=== PATIENT | male | born 2005 | race Caucasian/White ===

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

== ENCOUNTER 2023-02-11 11:21 | Emergency (ER) | payer MEDICAID, SELFPAY ==
[2023-02-11 11:27] VITALS: BP 122/76; PULSE 67; RESP 17; TEMP 36.7; O2SAT 100; BMI 27.8
[2023-02-11 12:21] LABS: Basophils # 0.1 10^3/uL (0.0-0.1); Basophils % 0.6 %; Eosinophils # 0.3 10^3/uL (0.0-0.8); Hematocrit 43.1 % (37-53); Lymphocytes # 2.8 10^3/uL (1.5-6.5); Lymphocytes % 34.3 %; Mean Corpuscular HGB Conc 33.2 g/dL (30-55); Mean Corpuscular Hemoglobin 27.4 pg (27-33); Mean Corpuscular Volume 82.7 fl (82-101); Mean Platelet Volume 9.6 fL (7.4-10.4); Monocytes # 0.7 10^3/uL (0.2-0.9); Monocytes % 8.2 %; Neutrophils # 4.42 10^3/uL (1.8-8.0); Neutrophils % 53.5 %; Nucleated Red Blood Cells % 0 %; Platelet Count 309 10^3/cmm (157-399); Red Blood Count 5.21 10^6/uL (3.85-5.65); Red Cell Distribution Width 12.8 % (12.1-15.1); White Blood Count 8.26 10^3/uL (4.5-13.0)
--- NOTE | 2023-02-11 12:29 | ED_ITS ---
HPI - GI Bleed General: Chief complaint: GI Bleed Stated complaint: pooping blood Time Seen by Provider: 02/11/23 12:12 Source: patient Mode of arrival: ambulatory Limitations: no limitations History of Present Illness: This patient presents to the emergency department because he was concerned about having some blood in his stool. He states he got up in her normal state of health and had some lower abdominal cramping and had a hard bowel movement and noted a little bit of blood on the bowel movement. He states that within an hour or so later he had some increasing lower abdominal cramping and had loose stools with bright red blood mixed with the stool. He has not any subsequent stools since that time. He denies any recent antibiotic use, recent travel etc. He states he has had previous similar episode several months ago that was evaluated and he was referred to gastroenterology but because of insurance changes he did not keep that appointment. Apparently there is a strong family history of Crohn's disease with several first-degree relatives and second-degree relatives in his mother's side of the family. He has never had any abdominal surgeries. He has had some history of lactose intolerance with cheeses and ice cream. He denies any fevers or chills. He does not take any nonsteroidals aspirin etc. He denies any rectal trauma etc. He is not lightheaded dizzy etc. He has never had lower endoscopy and has had an otherwise unremarkable past medical history. He did have some heartburn or acid reflux symptoms approximately year ago that he took a medicine for it and those have resolved and have not ever come back. He does smoke tobacco does not use alcohol or street drugs. MD complaint: gross hematochezia Associated symptoms: Denies chills, easy bruising, epistaxis, fever(s), headache(s), nausea, syncope or vomiting Review of Systems Const: Denies: fever(s) or chills ENMT: Denies: throat pain, nasal discharge, nasal congestion or epistaxis Card: Denies: chest pain, palpitations, syncope or pre-syncope Resp: Denies: dyspnea, productive cough or non-productive cough GI: Reports: hematochezia; Denies: nausea, vomiting, hematemesis, heartburn or constipation : Denies: flank pain, difficulty urinating, dysuria or urinary frequency Neuro: Denies: headache(s), numbness in extremities or weakness in extremities Ayo/Lymph: Denies: easy bruising, easy bleeding or petechiae PFS ED PFSH: Medical History (Updated 02/11/23 @ 13:38 by Elias Myers DO) Psychiatric care Social History Smoking and tobacco/nicotine status: never used tobacco/nicotine Second hand smoke exposure: Yes Alcohol intake: former Substance/Drug Use: current Other substance/drug use details: Delta 8 Physical Exam Narrative: EXAM NARRATIVE: He is alert no acute distress makes good eye contact and appears to be very comfortable. Const: COMMON NORMALS: no acute distress, average body habitus and patient oriented x3 GENERAL APPEARANCE: cooperative, comfortable and well kempt HENMT: COMMON NORMALS: normocephalic, Normal nasal mucous membranes and turbinates present, moist oral mucous membranes and oropharynx normal HEAD & SCALP: normocephalic NOSE: Normal nasal mucous membranes and turbinates present Eye: COMMON NORMALS: Equal, round and reactive pupils present, EOMs intact bilaterally and no scleral icterus PUPIL: Yes Equal, round and reactive pupils present Neck/C-Spine: COMMON NORMALS: full ROM, no lymphadenopathy and no JVD Chest: COMMONS NORMALS: normal inspection of the chest Resp: COMMON NORMALS: normal respiratory effort, No retractions, No use of accessory muscles and clear to auscultation bilaterally AUSCULTATION: clear to auscultation bilaterally Cardio: COMMON NORMALS: no JVD, regular rate, regular rhythm, No murmurs present (Cardio) and Peripheral pulses 2+ throughout RATE: regular rate RHYTHM: regular rhythm PERIPHERAL PULSES: Peripheral pulses 2+ throughout GI: COMMON NORMALS: Normal to inspection, nondistended, normoactive bowel sounds present, Soft to palpation and non-tender PALPATION: Yes Soft to palpation RECTAL EXAM: Yes visual inspection normal, Yes normal sphincter tone, No hemorrhoids, No Anal fissure(s) present and No tenderness : COMMON NORMALS: Yes no CVA tenderness BLADDER/KIDNEY EXAM: Yes no CVA tenderness Back/Pelvis: COMMON NORMALS: no CVA tenderness, thoracic and lumbar spine normal to inspection and no thoracic nor lumbar tenderness Extremity: COMMON NORMALS: normal to inspection, full ROM, no calf tenderness and no pedal edema Neuro: COMMON NORMALS: patient oriented x3, moves all extremities, no focal motor deficits and no sensory deficits noted Psych: COMMON NORMALS: mental status grossly normal APPEARANCE: Yes well kempt Skin: COMMON NORMALS: no rashes or lesions noted, no wounds and turgor normal GENERAL SKIN EXAM: no rashes or lesions noted and turgor normal Course Reevaluation(s): Reevaluation #1: Patient is remained comfortable. Vital signs are reassuring. Abdominal e xamination remains nontender without any evidence of peritoneal signs or other concerning findings at this time. Reviewed current findings there limitations etc. Also reviewed need for GI follow-up for endoscopy and further evaluation. At this time there is no evidence of an ongoing emergency medical condition but we also discussed return precautions in detail. Time: 13:35 Vital Signs: Vital signs: Vital Signs Temperature 98.1 F 02/11/23 11:27 Pulse Rate 67 02/11/23 11:27 Respiratory Rate 17 02/11/23 11:27 Blood Pressure 122/76 02/11/23 11:27 Pulse Oximetry 100 02/11/23 11:27 Oxygen Delivery Me thod Room Air 02/11/23 11:27 MDM - GI Bleed Medical Decision Making This patient presented to our emergency department because of concerns about having bright red blood per rectum. He has had 2 episodes today. No evidence to suggest recent antibiotic use, rectal trauma, blood dyscrasias etc. His clinical examination was very reassuring with normal vital signs a nontender reassuring abdominal examination and no evidence of obvious fissures or hemorrhoids etc. at this time. Patient does have a strong family history of Crohn's disease however his blood count platelet count chemistries etc. are reassuring at this time. We reviewed limited efficacy of additional imaging at this time but that GI follow-up is going to be important to establish whether he has any colonic pathology as well. There is also some history to suggest lactose intolerance and while that may or may not contribute to his current presentation we discussed lactose avoidance. Patient is currently clinically stable and suitable for outpatient evaluation and we discussed return precautions in detail which she acknowledged. We also recommended avoiding nonsteroidals antiplatelet agent such as aspirin etc. at this time. Medical Records I reviewed the patient's medical records. Prior MRI and ultrasound noted no significant pathology. Lab Data I reviewed the patient's lab results. 02/11/23 12:05 02/11/23 12:05 Laboratory Results WBC 8.26 10^3/uL (4.5-13.0) 02/11/23 12:05 RBC 5.21 10^6/uL (3.85-5.65) 02/11/23 12:05 Hgb 14.30 g/dL (13.2-15.6) 02/11/23 12:05 Hct 43.1 % (37-53) 02/11/23 12:05 MCV 82.7 fl (82-101) 02/11/23 12:05 MCH 27.4 pg (27-33) 02/11/23 12:05 MCHC 33.2 g/dL (30-55) 02/11/23 12:05 RDW 12.8 % (12.1-15.1) 02/11/23 12:05 Plt Count 309 10^3/cmm (157-399) 02/11/23 12:05 MPV 9.6 fL (7.4-10.4) 02/11/23 12:05 Neut % (Auto) 53.5 % 02/11/23 12:05 Lymph % (Auto) 34.3 % 02/11/23 12:05 H[place]go % (Auto) 8.2 % 02/11/23 12:05 Eos % (Auto) 3.0 % 02/11/23 12:05 Baso % (Auto) 0.6 % 02/11/23 12:05 Neut # (Auto) 4.42 10^3/uL (1.8-8.0) 02/11/23 12:05 Lymph # (Auto) 2.8 10^3/uL (1.5-6.5) 02/11/23 12:05 [place]go # (Auto) 0.7 10^3/uL (0.2-0.9) 02/11/23 12:05 Eos # (Auto) 0.3 10^3/uL (0.0-0.8) 02/11/23 12:05 Baso # (Auto) 0.1 10^3/uL (0.0-0.1) 02/11/23 12:05 Nucleated RBC % (auto) 0 % 02/11/23 12:05 Nucleated RBCs # 0.0 /100WBC 02/11/23 12:05 Sodium 137 mmol/L (136-145) 02/11/23 12:05 Potassium 3.4 mmol/L (3.5-5.1) L 02/11/23 12:05 Chloride 102 mmol/L (98-107) 02/11/23 12:05 Carbon Dioxide 26 mmol/L (22-29) 02/11/23 12:05 Anion Gap 12.4 (5-19) 02/11/23 12:05 BUN 9 mg/dL (6-20) 02/11/23 12:05 Creatinine 0.7 mg/dL (0.7-1.2) 02/11/23 12:05 GFR Calculation 145.3 mL/min (90-130) H 02/11/23 12:05 Glucose 79 mg/dL (65-115) 02/11/23 12:05 Calculated Osmolality 282 mOsm/kg (285-295) L 02/11/23 12:05 Calcium 9.4 mg/dL (8.5-10.5) 02/11/23 12:05 Total Bilirubin 0.4 mg/dL (0.15-1.2) 02/11/23 12:05 AST 25 U/L (0-40) 02/11/23 12:05 ALT 28 U/L (0-41) 02/11/23 12:05 Alkaline Phosphatase 93 U/L (40-130) 02/11/23 12:05 Total Protein 7.2 g/dL (6.6-8.7) 02/11/23 12:05 Albumin 4.7 g/dL (3.5-5.2) 02/11/23 12:05 Globulin 2.5 g/dL (1.3-4.6) 02/11/23 12:05 No radiology studies performed this visit Discharge Plan Discharge Patient Disposition: Home Clinical Impression: Hematochezia Condition: Stable Prescriptions: No Action cetirizine 10 mg tablet 10 mg PO DAILY PRN albuterol sulfate [Ventolin HFA] 90 mcg/actuation HFA aerosol inhaler 1 puff inhalation .HS fluoxetine 40 mg capsule 40 mg PO DAILY Qty: 30 1RF trazodone 50 mg tablet 100 mg PO .HS PRN (Reason: insomnia) Qty: 60 1RF bacitracin 500 unit/gram ointment 1 applic topical BID Qty: 28 0RF Rx Instructions: To wound until healed Discharge Orders: Discharge ED (Routine); Ordered 02/11/23 Ordered By: Elias Myers Referrals: Cindy Caceres, [Primary Care Provider] - Discharge Diet: Usual diet Discharge Activity: Resume usual activity Patient Instructions: Rectal Bleeding (ED), Opioid Safety, Pain Management Activity Restrictions/Additional Instructions: As we discussed while you are in the emergency department your blood count and other test as well as your clinical examination did not suggest a serious condition at this time but that additional evaluation is being arranged for you. However if you continue to have rectal bleeding, develop abdominal pain, develop lightheadedness weakness or any other concerns at any time return to the this or the nearest emergency department for reevaluation. Case management should be contacted contacting you in the next few days to discuss your follow- up appointment. Coding Level of Care Code ED Visual Merchandising Coordinator for Ethel Melissa
[2023-02-11 12:32] LABS: Alanine Aminotransferase 28 U/L (0-41); Albumin Level 4.7 g/dL (3.5-5.2); Alkaline Phosphatase 93 U/L (40-130); Anion Gap 12.4 (5-19); Aspartate Amino Transferase 25 U/L (0-40); Blood Urea Nitrogen 9 mg/dL (6-20); Calcium 9.4 mg/dL (8.5-10.5); Carbon Dioxide 26 mmol/L (22-29); Chloride 102 mmol/L (98-107); Globulin 2.5 g/dL (1.3-4.6); Glomerular Filtration Rate 145.3 mL/min (90-130); Glucose 79 mg/dL (65-115); Osmolality Calculated 282 mOsm/kg (285-295); Potassium 3.4 mmol/L (3.5-5.1); Sodium 137 mmol/L (136-145); Total Bilirubin 0.4 mg/dL (0.15-1.2); Total Protein 7.2 g/dL (6.6-8.7)
[2023-02-11 13:45] VITALS: BP 113/73; PULSE 64; O2SAT 98
--- NOTE | 2023-02-12 08:20 | DCPLANNER ---
Referral was sent to the general surgery clinic on 02/12/23 at 08:21. Clinic to contact patient.
== END 2023-02-11 13:47 | disposition home or self-care (01) ==
PROVIDERS: Emergency Provider Emergency Medicine; PCP Family Medicine
DX: K92.1 Melena (principal); Z77.22 Contact with and (suspected) exposure to environmental tobacco smoke (acute) (chronic)
CPT/HCPCS: 36415; 80053; 85025; 99283

== ENCOUNTER → 2023-02-27 07:42 | Outpatient (BNVA) | payer MEDICAID, SELFPAY | PROVIDERS: PCP Family Medicine; Referring Provider Emergency Medicine; Visit Provider Surgery | DX: K92.2 Gastrointestinal hemorrhage, unspecified (principal); K52.9 Noninfective gastroenteritis and colitis, unspecified | CPT/HCPCS: 99204 ==

== ENCOUNTER 2023-02-28 08:57 | Day surgery (SDC) | payer MEDICAID, SELFPAY ==
[2023-02-28 09:19] VITALS: BP 132/69; PULSE 68; RESP 18; TEMP 36.2; O2SAT 99; BMI 26.6
[2023-02-28] MEDS: sodium chloride 0.9% 1,000 ML 30 ML IV (11:05)
--- NOTE | 2023-02-28 11:29 | W.PM.OPSUD ---
Surgery/Procedure H&P Update DATE OF PROCEDURE: February 28, 2023 DATE H&P PERFORMED: 02/27/23 H&P UPDATE INFORMATION: I have reviewed H&P completed within last 30 days, I have examined patient prior to procedure and No changes to prior documentation PLANNED PROCEDURE: Operation Date: 02/28/23 10:00 Proposed Procedures p [id number] egd [id number] colon G0121 screen colon A risk K92.2,K52.9(Not Applicable) - DO maurice Galaviz Colonoscopy(Not Applicable) - Viral Clemons DO
[2023-02-28 11:52] VITALS: BP 107/61; PULSE 104; RESP 16; TEMP 36.1; O2SAT 98
[2023-02-28 12:04] VITALS: BP 109/61; PULSE 74; RESP 18; O2SAT 100
[2023-02-28 12:10] VITALS: BP 116/69; PULSE 65; RESP 18; O2SAT 100
--- NOTE | 2023-02-28 12:45 | ANE.PACU2 ---
Inpatient post-anesthesia follow up: Airway intact: Yes Vital signs: Temperature 97.0 F Pulse Rate 65 Respiratory Rate 18 Blood Pressure 116/69 Pulse Oximetry 100 Oxygen Delivery Me thod Room Air Oxygen Flow Rate Fraction of Inspir ed Oxygen Hydration adequate: Yes Nausea and vomiting: No Pain level: 1 Mental status: Baseline
[2023-03-01 14:24] LABS: Clostridium Difficile PCR NOT DETECTED (NOT DETECTED)
== END 2023-02-28 12:45 | disposition home or self-care (01) ==
PROVIDERS: PCP Family Medicine; Visit Provider Surgery
PROC: 0DJ08ZZ Inspection of Upper Intestinal Tract, Via Natural or Artificial Opening Endoscopic (ICD-10-PCS; CPT 43235; principal; 2023-02-28 10:00)
PROC: 0DJD8ZZ Inspection of Lower Intestinal Tract, Via Natural or Artificial Opening Endoscopic (ICD-10-PCS; CPT 45378; 2023-02-28 10:00)
DX: K29.80 Duodenitis without bleeding (principal); K52.9 Noninfective gastroenteritis and colitis, unspecified
CPT/HCPCS: 43239; 45380; 82274; 83630; 87045; 87177; 87209; 87427; 87449; 87493; 88305; J2704; J7030

== ENCOUNTER → 2023-03-13 09:15 | Outpatient (BNVA) | payer MEDICAID, SELFPAY | PROVIDERS: PCP Family Medicine; Visit Provider Surgery | DX: Z09 Encounter for follow-up examination after completed treatment for conditions other than malignant neoplasm (principal); K52.9 Noninfective gastroenteritis and colitis, unspecified; R10.9 Unspecified abdominal pain | CPT/HCPCS: 99214 ==

== ENCOUNTER 2023-03-26 09:01 | Outpatient (CLI) | payer MEDICAID, SELFPAY ==
--- NOTE | 2023-03-26 10:00 | NM_ITS ---
WS: [id number] NUCLEAR MEDICINE HIDA SCAN CLINICAL INFORMATION: abdominal pain TECHNIQUE: Following intravenous administration of 8.4 mCi of technetium 99m mebrofenin, images of th e abdomen were obtained over the course of 60 minutes. Next, gallbladder ejection fraction was determ ined by obtaining preprandial and one-hour postprandial images of the gallbladder following oral harini stion of Ensure. COMPARISON: None. FINDINGS: Normal hepatic uptake at 5 minutes. Normal hepatic excretion. Gallbladder is visualized by 15 minutes . No evidence of acute cholecystitis. Normal common bile duct and small bowel activity visualized. Gallbladder ejection fraction 71% within normal limits. No evidence of chronic cholecystitis. IMPRESSION: 1. No evidence of acute or chronic cholecystitis. 2. Gallbladder ejection fraction 71% within normal limits.
== END 2023-03-26 09:02 | disposition home or self-care (01) ==
LOC: RAD 09:01
PROVIDERS: PCP Family Medicine; Visit Provider Surgery
DX: R10.9 Unspecified abdominal pain (principal)
CPT/HCPCS: 78227; A9537

== ENCOUNTER 2023-04-26 10:00 | Day surgery (SDC) | payer MEDICAID, SELFPAY ==
[2023-04-26] VITALS (10 sets, daily range): BP systolic 112–123; BP diastolic 57–76; PULSE 61–77; RESP 16–18; TEMP 35.6–36.3; O2SAT 91–99; BMI 26.6
[2023-04-26] MEDS: sodium chloride 0.9% 1,000 ML 30 ML IV (10:18)
--- NOTE | 2023-04-26 10:30 | ANES.PREANE2 ---
Pre-Anesthetic Assessment Height/Weight: Height 1.73 m Weight 79.379 kg Temp Pulse Resp BP Pulse Ox O2 Del Method 97.1 F L 75 18 119/61 99 Room Air 04/26/23 10:13 04/26/23 10:13 04/26/23 10:13 04/26/23 10:13 04/26/23 10:13 04/26/23 10:13 Operation Date: 04/26/23 11:45 Proposed Procedures p [id number] lap jeniffer R10.9(Not Applicable) - Viral Clemons, DO Was Beta Kathie taken within 24 hours: N/A Was Clonidine taken within 24 hours: N/A Last intake: Intake Last Liquid Date 04/25/23 Last Liquid Time 20:00 Last Solid Date 04/25/23 Last Solid Time 20:00 Social No tobacco Exam alert and oriented x 3 Airway Submandibular: within normal limits Cervical ROM: within normal limits Mallampati: Class II Comments: Comments: Filler on upper right middle tooth History/ROS No significant history except as noted and No significant complaints Neuropsych Depression Anesthetic Plan ASA status: 2 Anesthesia: General Risk of > 500 ml blood loss (7ml/kg in children): No Medications/Allergies Home Medications Medication Instructions Recorded Confirmed Last Taken Type No Known Home Medications 04/25/23 04/26/23 Unknown History Allergies Allergy/AdvReac Type Severity Reaction Status Date / Time sertraline [From Zoloft] Allergy depression/suicidal Verified 04/26/23 10:09 thoughts Current Medications Generic Name Dose Route Start Last Admin Trade Name Freq PRN Reason Stop Dose Admin Sodium Chloride 1,000 mls @ 30 mls/hr 04/26/23 10:15 04/26/23 10:18 Sodium Chloride 0.9% IV 04/27/23 10:14 30 mls/hr .Q24H SHELLEY Administration PFSH Anesthesia Social History Smoking and tobacco/nicotine status: never used tobacco/nicotine Second hand smoke exposure: Yes Alcohol intake: former Substance/Drug Use: current Other substance/drug use details: Delta 8 Data Anesthesia Cardiac Studies: No Data to Display
--- NOTE | 2023-04-26 10:44 | P.HP_ITS ---
Providers/Chief Complaint Primary Care Provider: Cindy Caceres DO Chief Complaint: R10.9 History of Present Illness Winston Falk is a 17 year old male Review of Systems General: Reports: 10 or more systems reviewed and unremarkable except in HPI and below Medications/Allergies Home Medications Medication Instructions Recorded Confirmed Last Taken Type No Known Home Medications 04/25/23 04/26/23 Unknown History Allergies Allergy/AdvReac Type Severity Reaction Status Date / Time sertraline [From Zoloft] Allergy depression/suicidal Verified 04/26/23 10:09 thoughts PFSH Acute PFSH: Social History Smoking and tobacco/nicotine status: never used tobacco/nicotine Second hand smoke exposure: Yes Alcohol intake: former Substance/Drug Use: current Other substance/drug use details: Delta 8 Vitals/I&O/Wt Last Vital Signs Temp 97.1 F L 04/26/23 10:13 Pulse 75 04/26/23 10:13 Resp 18 04/26/23 10:13 BP 119/61 04/26/23 10:13 Pulse Ox 99 04/26/23 10:13 O2 Del Method Room Air 04/26/23 10:13 Weight last 48 hrs Weight 175 lb A&P Assessment and plan (1) Biliary colic: Plan Patient with biliary colic and right upper quadrant syndrome Laparoscopic cholecystectomy The risks and benefits of the procedure, including but not limited to, bleeding, infection, scar, numbness, pain, damage to surrounding structures, damage to common bile duct requiring additional surgery, conversion to an open procedure, and especially the fact that there is a 20 to 30% chance that cholecystectomy does not relieve his symptoms with this diagnosis, were explained to the patient . He is understanding of the risks and wishes to proceed. Attestations Medical Necessity Statement*: Home Coding Level of Care Code Acute Code for [facility] Diagnoses Biliary colic K80.50
[2023-04-26] MEDS: ceFAZolin 2,000 MG in sodium chloride 0.9% (plus) 50 ML 100 MG IV (12:11)
[2023-04-26] MEDS: lidocaine-epi 2% 20 mL INJ INJECTION (12:45)
--- NOTE | 2023-04-26 12:49 | P.OP_ITS ---
Operative Report Date of procedure: April 26, 2023 Post-op diagnosis: same Surgeon: Viral Clemons DO Brief History: This very pleasant 17-year-old gentleman who was diagnosed with biliary colic and right upper quadrant syndrome. He did. The risks and benefits, especially the fact that there is a 20 to 30% chance that cholecystectomy will not relieve the symptoms, were explained and documented. Patient wished to proceed. Procedure: Preoperative diagnosis: Biliary colic, Right upper quadrant syndrome Postoperative diagnosis: Same Procedure performed: Laparoscopic cholecystectomy Surgeon: Dr. Viral Clemons DO Estimated blood loss: 5 mL Specimens: Gallbladder to pathology Complications: None apparent Description of procedure: Patient was wheeled into the operative room and placed on the OR table in a supine position. Abdomen was inspected prepped and draped in usual sterile fashion. Time-out was performed and all present were in agreement. A 15 blade scalp was used to make a stab incision in the left upper quadrant and intra- abdominal insufflation was achieved using a Veress needle. After localizing the tissue incisions were made and a 5 millimeter trocar was placed into the umbilicus as well as 2 in the right upper quadrant. A 12 millimeter trocar was placed in the epigastrium. Gallbladder was grasped and elevated. The triangle of Calot was carefully dissected using blunt dissection and electrocautery until the triangle of Calot clearly identified. The cystic duct was clipped proximally and double clipped distally. The duct was then ligated proximally. The cystic artery was doubly clipped and ligated. The gallbladder was then removed from the liver bed using electrocautery. The gallbladder was removed from the abdomen using an Endo-Catch bag through the epigastric incision. The liver bed was inspected and no bleeding was seen. The abdomen was irrigated and suctioned. All ports removed. Skin was washed and dried. Incisions were closed with 4-0 Monocryl in a subcuticular interrupted fashion. Skin glue was applied. Patient tolerated the procedure well.
[2023-04-26] MEDS: HYDROcodone-acetaminophen 10-325 mg Tablet 1 TAB PO (14:06)
--- NOTE | 2023-04-26 14:18 | ANE.PACU2 ---
Inpatient post-anesthesia follow up: Airway intact: Yes Vital signs: Temperature 96.1 F Pulse Rate 65 Respiratory Rate 16 Blood Pressure 121/58 Pulse Oximetry 91 Oxygen Delivery Me thod Room Air Oxygen Flow Rate Fraction of Inspir ed Oxygen Hydration adequate: Yes Nausea and vomiting: No Pain level: 2 Mental status: Baseline
== END 2023-04-26 14:21 | disposition home or self-care (01) ==
PROVIDERS: PCP Family Medicine; Visit Provider Surgery
PROC: 0FT44ZZ Resection of Gallbladder, Percutaneous Endoscopic Approach (ICD-10-PCS; CPT 47562; principal; 2023-04-26 11:35)
DX: K81.1 Chronic cholecystitis (principal)
CPT/HCPCS: 47562; 88304; J0690; J1885; J2250; J2405; J2704; J3010; J3490; J7030

== ENCOUNTER → 2023-05-15 10:54 | Outpatient (BNVA) | payer MEDICAID, SELFPAY | PROVIDERS: PCP Family Medicine; Visit Provider Surgery | DX: Z90.49 Acquired absence of other specified parts of digestive tract (principal); Z98.890 Other specified postprocedural states | CPT/HCPCS: 99024 ==

== ENCOUNTER 2024-05-17 06:00 | Outpatient (CLI) | payer OTHER, SELFPAY | END 2024-05-17 06:01 | LOC: SPT 06-13 06:18 | PROVIDERS: Visit Provider Podiatrist Foot & Ankle Surgery | DX: Z46.89 Encounter for fitting and adjustment of other specified devices (principal); S92.912D Unspecified fracture of left toe(s), subsequent encounter for fracture with routine healing; X58.XXXD Exposure to other specified factors, subsequent encounter | CPT/HCPCS: L3031 ==

== ENCOUNTER 2024-05-30 13:41 | Emergency (ER) | payer OTHER, SELFPAY ==
[2024-05-30 13:43] VITALS: BP 116/76; PULSE 58; RESP 16; TEMP 36.7; O2SAT 99; BMI 24.3
--- NOTE | 2024-05-30 13:49 | XR_ITS ---
WS: [id number] XR foot LT min 3V* [id number] REASON FOR EXAM: crush injury FINDINGS: Cortical irregularity at the medial base of the third metatarsal. . Deformity of the lateral base of the second metatarsal. Widening of the middle and lateral cuneiform articulation. XR/XR foot LT min 3V* [id number] IMPRESSION: Findings of Lisfranc ligamentous injury with nondisplaced fractures at the base of the second and third metatarsals.
--- NOTE | 2024-05-30 13:50 | W.ED.LOWEXIN ---
HPI - Extremity Injury (Lower) General: Chief Complaint: Extremity Injury, Lower Stated Complaint: left foot pain Time Seen by Provider: 05/30/24 13:43 Source: patient Mode of arrival: ambulatory Limitations: no limitations History of Present Illness: Patient is a 18-year-old male presents to ED today for evaluation of a left foot injury that he sustained late last night/early this morning when he was in the gym and accidentally dropped a heavy weight onto the foot. MD complaint: foot injury Onset (ago): hour(s) Injury: Left: foot Type of Injury: blunt Place: other (gym) Severity: moderate Relieving factors: immobilization Exacerbating factors: weight bearing, movement and palpation Context: direct blow Associated symptoms: Reports no associated symptoms Other symptoms: none Related Data Home Medications ?Medication ?Instructions ?Recorded ?Confirmed No Known Home Medications 05/15/23 05/15/23 Allergies Allergy/AdvReac Type Severity Reaction Status Date / Time sertraline (From Zoloft) Allergy depression/suicidal Verified 05/15/23 11:13 thoughts Review of Systems Musc: Reports: extremity pain (L foot) and extremity swelling (L foot) Neuro: Denies: numbness in extremities or sensory changes PFS ED PFSH: Surgical History History of laparoscopic cholecystectomy Social History Smoking and tobacco/nicotine status: never used tobacco/nicotine Second hand smoke exposure: Yes Alcohol intake: former Substance/Drug Use: current Other substance/drug use details: Delta 8 Physical Exam Const: COMMON NORMALS: no acute distress, average body habitus, no limitations, healthy appearing, alert and well nourished Extremity: COMMON NORMALS: capillary refill normal GENERAL: Yes normal exam except as noted LEFT LOWER EXTREMITY: Yes foot & digits (TTP/edema to great toe and dorsal L foot) Left foot and digits: Yes neurovascular exam (normal ) Neuro: COMMON NORMALS: moves all extremities, no focal motor deficits and no sensory deficits noted SENSORIUM/ORIENTATION: Yes alert Skin: NARRATIVE SKIN EXAM: no abrasions/breaks in skin or nail damage noted Course Vital Signs: Vital signs: Vital Signs Temperature 98.0 F 05/30/24 13:43 Pulse Rate 86 05/30/24 14:11 Respiratory Rate 18 05/30/24 14:11 Blood Pressure 120/77 05/30/24 14:11 Pulse Oximetry 98 05/30/24 14:11 Oxygen Delivery Me thod Room Air 05/30/24 13:43 MDM - Extremity Injury (Lower) Medical Decision Making Patient here after he dropped a weight onto his foot at the gym earlier this morning. Most of his pain and swelling is localized near the left great toe. Radiology read of his XR showing findings of Lisfranc ligamentous injury with nondisplaced fractures at the base of the second and third metatarsals. I think there may also be a small avulsion fracture involving the great toe. Will splint and give him crutches and have him follow-up with podiatry. Lab Data Radiology Impressions Foot X-Ray 05/30/24 13:49 IMPRESSION: Findings of Lisfranc ligamentous injury with nondisplaced fractures at the base of the second and third metatarsals. All radiology interpretation(s) finalized by discharge Discharge Plan Discharge Patient Disposition: Home Clinical Impression: Closed fracture of distal phalanx of great toe Qualifiers: Encounter type: initial encounter Fracture alignment: nondisplaced Laterality: left Qualified Code(s): S92.425A - Nondisplaced fracture of distal phalanx of left great toe, initial encounter for closed fracture Metatarsal fracture Qualifiers: Encounter type: initial encounter Metatarsal bone: unspecified metatarsal Fracture type: closed Fracture alignment: nondisplaced Laterality: left Qualified Code(s): S92.302A - Fracture of unspecified metatarsal bone(s), left foot, initial encounter for closed fracture Condition: Stable Prescriptions: No Action No Known Home Medications Discharge Orders: Discharge ED (Routine); Ordered 05/30/24 Ordered By: Britt Zuniga Referrals: Cindy Caceres DO [Primary Care Provider] - Activity Restrictions/Additional Instructions: As we discussed you need to stay in your hard soled shoe/splint at all times until your follow up appointment. Utilize the crutches for weightbearing. We will have case management set you up with a follow-up appointment with podiatry. Ice and elevate the extremity. You may use [id number] analgesics such as Tylenol and/or ibuprofen as needed for discomfort. Print Language: Ukrainian Coding Level of Care Code ED Software Analyst for [facility]
[2024-05-30 14:11] VITALS: BP 120/77; PULSE 86; RESP 18; O2SAT 98
[2024-05-30 14:40] VITALS: BP 117/66; PULSE 83; RESP 18; O2SAT 98
== END 2024-05-30 14:42 | disposition home or self-care (01) ==
PROVIDERS: Emergency Provider Physician Assistant; PCP Family Medicine
DX: S92.425A Nondisplaced fracture of distal phalanx of left great toe, initial encounter for closed fracture (principal); S92.302A Fracture of unspecified metatarsal bone(s), left foot, initial encounter for closed fracture; X58.XXXA Exposure to other specified factors, initial encounter
CPT/HCPCS: 73630; 99283

== ENCOUNTER → 2024-06-12 15:49 | Outpatient (BNVA) | payer OTHER, SELFPAY | PROVIDERS: PCP Family Medicine; Visit Provider Podiatrist Foot & Ankle Surgery | DX: M79.672 Pain in left foot (principal); S92.422A Displaced fracture of distal phalanx of left great toe, initial encounter for closed fracture; X58.XXXA Exposure to other specified factors, initial encounter | CPT/HCPCS: 73630 ==

== ENCOUNTER 2024-10-24 15:41 | Emergency (ER) | payer OTHER, SELFPAY ==
[2024-10-24 15:48] VITALS: BP 109/73; PULSE 53; RESP 16; TEMP 36.4; O2SAT 100; BMI 22.8
--- NOTE | 2024-10-24 16:40 | ED_ITS ---
HPI - Back Pain/Injury 2 General: Chief Complaint: Back Pain/Injury Stated Complaint: middl abd / back pain Time Seen by Provider: 10/24/24 16:35 History of Present Illness: 20-year-old male complains of mid back p ain. Began this morning while he was at work states radiates into his abdomen has began to improve now earlier was quite severe he felt like he was going to pass out. Associated symptoms: Deny abdominal pain, chills, dysuria, fever(s) or urinary urgency Related Data Previous Rx's ?Medication ?Instructions ?Recorded Carbon Fiber Foot Plate #1 ea 06/12/24 diclofenac sodium 75 mg 75 mg PO Q12H PRN pain #20 t abs 10/24/24 tablet,delayed release tizanidine 4 mg tablet 4 mg PO Q6H PRN muscle spast icity 10/24/24 #20 tabs Allergies Allergy/AdvReac Type Severity Reaction Status Date / Time sertraline (From Zoloft) Allergy depression/suicidal Verified 05/15/23 11:13 thoughts Review of Systems 2 Const: Denies: fever(s) or chills Card: Denies: chest pain Resp: Denies: dyspnea GI: Denies: abdominal pain : Denies: dysuria, urinary frequency or urinary urgency Musc: Denies: neck pain or back pain Skin/Breast: Denies: rash PFSH ED 2 PFSH: Surgical History History of laparoscopic cholecystectomy Social History Smoking and tobacco/nicotine status: never used tobacco/nicotine Second hand smoke exposure: Yes Alcohol intake: former Substance/Drug Use: current Other substance/drug use details: Delta 8 Physical Exam 2 Const: COMMON NORMALS: no acute distress GENERAL APPEARANCE: cooperative and comfortable ORIENTATION/CONSCIOUSNESS: Yes awake, Yes oriented to person, Yes oriented to place and Yes oriented to time HENMT: COMMON NORMALS: normocephalic, atraumatic and hearing grossly normal bilaterally HEAD & SCALP: normocephalic and atraumatic Resp: COMMON NORMALS: normal respiratory effort, No retractions, No use of accessory muscles and clear to auscultation bilaterally AUSCULTATION: clear to auscultation bilaterally Cardio: COMMON NORMALS: regular rate, regular rhythm and No murmurs present (Cardio) RATE: regular rate RHYTHM: regular rhythm GI: COMMON NORMALS: Soft to palpation and No hepatosplenomegaly present A USCULTATION: Yes normoactive bowel sounds PALPATION: Yes Soft to palpation, No Tenderness to palpation present (GI), No Guarding due to palpation present (GI) and Yes No hepatosplenomegaly present Extremity: COMMON NORMALS: normal to inspection, capillary refill normal, no clubbing, cyanosis or edema, no calf tenderness and no pedal edema Neuro: SENSORIUM/ORIENTATION: Yes oriented to person, Yes oriented to place and Yes oriented to time Skin: COMMON NORMALS: no rashes or lesions noted GENERAL SKIN EXAM: no rashes or lesions noted Course 2 Vital Signs: Vital signs: Vital Signs Temperature 97.5 F L 10/24/24 15:48 Pulse Rate 59 L 10/24/24 18:01 Respiratory Rate 16 10/24/24 18:01 Blood Pressure 110/66 10/24/24 18:01 Pulse Oximetry 100 10/24/24 18:01 Oxygen Delivery Me thod Room Air 10/24/24 18:01 MDM - Back Pain/Injury Medical Decision Making Pain is reproducible with palpation across his low back on the left side. Mild elevation in white count he is feeling much better will discharge him home. Use tizanidine diclofenac as needed. Based on exam findings and labs this appears to be all musculoskeletal Medical Records I reviewed the patient's medical records. Labs I reviewed the patient's lab results. 10/24/24 17:05 10/24/24 17:05 Radiology Impressions Chest X-Ray 10/24/24 16:47 IMPRESSION: No acute findings. Laboratory Results WBC 12.62 10^3/uL (3.29-11.43) H 10/24/24 17:05 RBC 5.23 10^6/uL (3.85-5.65) 10/24/24 17:05 Hgb 15.00 g/dL (11.27-16.99) 10/24/24 17:05 Hct 44.2 % (37-53) 10/24/24 17:05 MCV 84.5 fl (82-101) 10/24/24 17:05 MCH 28.7 pg (27-33) 10/24/24 17:05 MCHC 33.9 g/dL (30-55) 10/24/24 17:05 RDW 12.3 % (12.1-15.1) 10/24/24 17:05 Plt Count 293 10^3/cmm (157-399) 10/24/24 17:05 MPV 9.7 fL (7.4-10.4) 10/24/24 17:05 Neut % (Auto) 70.9 % 10/24/24 17:05 Lymph % (Auto) 17.4 % 10/24/24 17:05 Sharkey % (Auto) 9.2 % 10/24/24 17:05 Eos % (Auto) 1.5 % 10/24/24 17:05 Baso % (Auto) 0.6 % 10/24/24 17:05 Neut # (Auto) 8.95 10^3/uL (1.8-7.7) H 10/24/24 17:05 Lymph # (Auto) 2.2 10^3/uL (0.8-4.8) 10/24/24 17:05 Sharkey # (Auto) 1.2 10^3/uL (0.2-0.9) H 10/24/24 17:05 Eos # (Auto) 0.2 10^3/uL (0.0-0.8) 10/24/24 17:05 Baso # (Auto) 0.1 10^3/uL (0.0-0.1) 10/24/24 17:05 Nucleated RBC % (auto) 0 % 10/24/24 17:05 Nucleated RBCs # 0.0 /100WBC 10/24/24 17:05 Sodium 140 mmol/L (136-145) 10/24/24 17:05 Potassium 4.0 mmol/L (3.5-5.1) 10/24/24 17:05 Chloride 103 mmol/L (98-107) 10/24/24 17:05 Carbon Dioxide 25 mmol/L (22-29) 10/24/24 17:05 Anion Gap 16.0 (5-19) 10/24/24 17:05 BUN 13 mg/dL (6-20) 10/24/24 17:05 Creatinine 0.9 mg/dL (0.7-1.2) 10/24/24 17:05 GFR Calculation 106.5 mL/min (90-130) 10/24/24 17:05 Glucose 64 mg/dL (65-115) L 10/24/24 17:05 Calculated Osmolality 288 mOsm/kg (285-295) 10/24/24 17:05 Calcium 9.4 mg/dL (8.5-10.5) 10/24/24 17:05 Total Bilirubin 0.4 mg/dL (0.15-1.2) 10/24/24 17:05 AST 18 U/L (0-40) 10/24/24 17:05 ALT 13 U/L (0-41) 10/24/24 17:05 Alkaline Phosphatase 84 U/L (40-130) 10/24/24 17:05 Total Protein 7.7 g/dL (6.6-8.7) 10/24/24 17:05 Albumin 4.8 g/dL (3.5-5.2) 10/24/24 17:05 Globulin 2.9 g/dL (1.3-4.6) 10/24/24 17:05 Lipase 26 U/L (13-60) 10/24/24 17:05 Urine Color Yellow (Yellow) 10/24/24 17:41 Urine Appearance Clear (CLEAR) 10/24/24 17:41 Urine pH 5.5 (5-7) 10/24/24 17:41 Ur Specific Fenton 1.023 (1.005-1.030) 10/24/24 17:41 Urine Protein 1+ (Negative) A 10/24/24 17:41 Urine Glucose (UA) Negative (Normal) 10/24/24 17:41 Urine Ketones Trace (Negative) 10/24/24 17:41 Urine Blood Negative (Negative) 10/24/24 17:41 Urine Nitrate Negative (Negative) 10/24/24 17:41 Urine Bilirubin Negative (Negative) 10/24/24 17:41 Urine Urobilinogen 0.2 mg/dL (Negative) 10/24/24 17:41 Ur Leukocyte Esterase Negative (Negative) 10/24/24 17:41 Urine RBC 0-2 /hpf (0-2) 10/24/24 17:41 Urine WBC 0-5 /hpf (0-5) 10/24/24 17:41 Ur Squamous Epith Cells 0-5 /hpf (0-5) 10/24/24 17:41 Amorphous Sediment Not Reportable 10/24/24 17:41 Urine Bacteria None seen /hpf (NONE) 10/24/24 17:41 Hyaline Casts 2.46 /lpf 10/24/24 17:41 All radiology interpretation(s) finalized by discharge Discharge Plan Discharge Patient Disposition: Home Clinical Impression: Strain of lumbar region Condition: Stable Prescriptions: New tizanidine 4 mg tablet 4 mg PO Q6H PRN (Reason: muscle spasticity) Qty: 20 0RF Rx Instructions: do not exceed 3 doses per 24 hrs diclofenac sodium 75 mg tablet,delayed release (DR/EC) 75 mg PO Q12H PRN (Reason: pain) Qty: 20 0RF No Action (DME) Carbon Fiber Foot Plate See Rx Instructions .Route .MEDSUPPLY Qty: 1 0RF Rx Instructions: As directed by [facility] Discharge Orders: Discharge ED (Routine); Ordered 10/24/24 Ordered By: Lm Leal Referrals: Cindy Caceres DO [Primary Care Provider, SOFTWARE DEVELOPMENT INTERN] Discharge Diet: Usual diet Discharge Activity: Increase activity as tolerated Patient Instructions: Acute Low Back Pain (ED), Opioid Safety, Pain Management, Patient Portal & Bruna Instructions Activity Restrictions/Additional Instructions: Thank you for choosing [facility] for your healthcare needs today. It is very important that you follow up as instructed or that you return to the Emergency Department should you have concerns or if your condition changes or worsens in any way. You were seen in the emergency room with complaints of low back pain. No sign of cystitis. No sign of infection. Suspect most your symptoms were caused by spasms in the back muscles. You were given IV fluids as well as diclofenac and tizanidine to use as needed. Print Language: Indonesian Coding Level of Care Code ED Manager Intern for [facility]
--- NOTE | 2024-10-24 16:47 | XRR_ITS ---
PROCEDURE INFORMATION: Exam: XR Chest Exam date and time: 10/24/2024 5:00 PM Age: 19 years old Clinical indication: Pain; Radiating; Additional info: Dyspnea/cough TECHNIQUE: Imaging protocol: Radiologic exam of the chest. Views: 1 view. COMPARISON: MR abdomen wo/w con* [id number] 11/23/2021 9:41 AM FINDINGS: Lungs: Unremarkable. No consolidation or mass. Pleural spaces: Unremarkable. No pleural effusion. No pneumothorax. Heart/Mediastinum: Unremarkable. No cardiomegaly. Bones/joints: Unremarkable. XR/XR chest 1V portable [id number] IMPRESSION: No acute findings.
[2024-10-24 17:19] LABS: Hematocrit 44.2 % (37-53); Hemoglobin 15.00 g/dL (11.27-16.99); Mean Corpuscular HGB Conc 33.9 g/dL (30-55); Mean Corpuscular Hemoglobin 28.7 pg (27-33); Mean Corpuscular Volume 84.5 fl (82-101); Nucleated Red Blood Cells % 0 %; Platelet Count 293 10^3/cmm (157-399); Red Blood Count 5.23 10^6/uL (3.85-5.65); White Blood Count 12.62 10^3/uL (3.29-11.43)
[2024-10-24] MEDS: methylPREDNISolone sod succ 125 mg/2 mL INJ IVP (17:23)
[2024-10-24 17:38] LABS: Alanine Aminotransferase 13 U/L (0-41); Albumin Level 4.8 g/dL (3.5-5.2); Alkaline Phosphatase 84 U/L (40-130); Anion Gap 16.0 (5-19); Aspartate Amino Transferase 18 U/L (0-40); Blood Urea Nitrogen 13 mg/dL (6-20); Calcium 9.4 mg/dL (8.5-10.5); Carbon Dioxide 25 mmol/L (22-29); Chloride 103 mmol/L (98-107); Creatinine Clr Calc Pharmacy 125.3459; Globulin 2.9 g/dL (1.3-4.6); Glucose 64 mg/dL (65-115); Lipase 26 U/L (13-60); Osmolality Calculated 288 mOsm/kg (285-295); Potassium 4.0 mmol/L (3.5-5.1); Sodium 140 mmol/L (136-145); Total Protein 7.7 g/dL (6.6-8.7)
[2024-10-24 17:44] VITALS: BP 99/62; PULSE 53; RESP 17; O2SAT 100
[2024-10-24 17:56] LABS: Glucose Urine UA Negative (Normal); Nitrate Urine Negative (Negative); Specific Gravity, Urine 1.023 (1.005-1.030)
[2024-10-24 18:01] VITALS: BP 110/66; PULSE 59; RESP 16; O2SAT 100
[2024-10-24 18:01] LABS: Add Urine Microscopic? YES
[2024-10-24 18:21] VITALS: BP 110/60; PULSE 69; O2SAT 97
== END 2024-10-24 18:22 | disposition home or self-care (01) ==
PROVIDERS: Emergency Provider Family Medicine; PCP Family Medicine
DX: S39.012A Strain of muscle, fascia and tendon of lower back, initial encounter (principal); X58.XXXA Exposure to other specified factors, initial encounter
CPT/HCPCS: 71045; 80053; 81001; 83690; 85025; 96361; 96374; 96375; 99284; J1885; J2919; J7030